=== PATIENT | female | born 1985 | race Caucasian/White ===

== ENCOUNTER 2016-06-29 11:04 | Day surgery (SDC) | payer OTHER ==
[2016-06-27 09:42] LABS: HEMATOCRIT 39.9 % (36.0-48.0); HEMOGLOBIN 13.7 g/dL (12.0-16.0)
--- NOTE | ~2016-06-29 | OP ---
Record Of Operation [facility] [address] [place]. [address] NAME: PACO MALONEY : 87 STATUS : REG [facility] PAT#: [id number] AGE: 31 ADM/REG DATE : 06/29/16 MR#: [id number] REPORT SERV DATE: 06/29/16 DICTATED BY: THERESE MALAVE DATE: 06/29/16 REPORT STATUS : Draft TRANSCRIBED BY: KEARA DATE: 06/29/16 DATE OF PROCEDURE: 06/29/2016 PREOPERATIVE DIAGNOSIS: Right otosclerosis. POSTOPERATIVE DIAGNOSIS: Right otosclerosis. PROCEDURE: Right laser stapedotomy. 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 I counseled her about the risks, benefits, and alternatives of this procedure. The risks include, but are not limited to pain, bleeding, infection, and scarring. I also told her that an alternative is continuing to observe her or the use of a hearing aid in the right ear. She voiced an understanding of those risks and signed a consent form. I also told her that she has a 1% risk of total hearing loss in the operated ear after this operation and she accepted that. PROCEDURE IN DETAIL: Paco was brought to the operating room and positioned on the table in supine manner. General endotracheal anesthesia was induced. The table was rotated 180 degrees. The patient was prepped and draped in the usual fashion. The area on the posterior aspect of the pinna was injected with 0.5% Marcaine in 1:200,000 epinephrine and the external auditory meatus was injected as well. Under the microscope, the rest of the external auditory canal was injected and under the microscope, I used the 7210 [address] blade to make an incision at 12 o'clock and about 7 o'clock and then connected those with the 7200 [address] blade about 6 mm out from the annulus. With a round knife, I elevated this flap down to the tympanic annulus and entered the tympanic membrane sharply, preserving the chorda tympani nerve. The flap was reflected back on itself and I placed a Gelfoam with some epinephrine on it in the area of the flap to hold it back and to help with hemostasis. The incision was made on the posterior aspect of the shawn bowl and this was carried down through skin and down to the perichondrium. A graft was harvested in the usual fashion. Hemostasis was obtained with the unipolar electrocautery. 4-0 Vicryl was placed, undyed, to secure the subcutaneous layers and a 5-0 plain was used in a running locking suture pattern on the skin to reapproximate the skin edge. This was dressed with bacitracin. Going back in the external auditory canal, the Gelfoam was removed and the middle ear was thoroughly suctioned under high power, the diagnosis was confirmed, and the patient did have a firm stapes but the incus appeared to be freely mobile. The CO2 laser was set at 2 garrido, 0.1 second pulse width, and 0.3 seconds repeat rate. Using that, we came through the stapedius tendon and the posterior kobi of the stapes and then down-fractured the stapes onto the premonitory and removed that. The large oval window rasp was utilized to size the stapedotomy and this was then created with the laser, creating a whit. Once the whit was large enough, I picked at the flakes of bone with a small oval window curette and then placed the 4.25 x 0.6 mm prosthesis through the stapedotomy and draped that over the incus. This was crimped in the usual fashion and it seemed to be crimped nicely. I suctioned out Record Of Operation [place] [id number] [facility]. [address] NAME: PACO MALONEY ANN : 87 STATUS : REG [facility]#: [id number] AGE: 31 ADM/REG DATE : 06/29/16 MR#: [id number] REPORT SERV DATE: 06/29/16 DICTATED BY: THERESE MALAVE DATE: 06/29/16 REPORT STATUS : Draft TRANSCRIBED BY: MODL DATE: 06/29/16 the perilymph out from around the base of the prosthesis, and I could see that it was in good position through the stapedotomy. Small pieces of fascia that had previously been harvested were leaned up around the edge of the piston inferiorly, superiorly, and then anteriorly. A drop of glue was placed over the top of those and excess glue was suctioned out. The flap was returned to its normal anatomic position, and care was taken to make sure that this was not turned under. Some pieces of Gelfoam were placed over the incision to make sure that did not dislodge. I placed a cotton ball and a Band-Aid at the external auditory meatus to hold that in place. The patient was returned to anesthesia control and extubated in the operating room and then moved to the recovery room in good condition. FINDINGS: 1. Estimated blood loss 1 mL. 2. Total fluids given 800 mL of Ringer's lactate. 3. Superior focus of otosclerosis. 4. The facial nerve was not dehiscent nor overhanging. 5. The incus and malleus were normally formed. 6. The round window was normal. BRIDGET/MODL Therese Malave M.D. / [id number] CC: Therese Malave M.D.
[~2016-06-29 11:04] MED LIST: WELLSR100 PO
== END 2016-06-29 19:23 | disposition home or self-care (01) ==
LOC: SDC 11:04
PROVIDERS: Otolaryngology
PROC: 09C Ear, Nose, Sinus, Extirpation (ICD-10-PCS; principal; 2016-06-29 12:45)
DX: H80.91 Unspecified otosclerosis, right ear (principal); F32.9 Major depressive disorder, single episode, unspecified; F17.210 Nicotine dependence, cigarettes, uncomplicated; H90.2 Conductive hearing loss, unspecified; Z79.899 Other long term (current) drug therapy; Z98.890 Other specified postprocedural states
CPT/HCPCS: 84703; 85014; 85018; 88304; 88311; J0690; J2250; J2370; J2405; J2550; J3010